=== PATIENT | male | born 1935 | race Caucasian/White ===

== ENCOUNTER 2018-06-13 07:33 | Inpatient (IN) ==
--- NOTE | 2018-06-13 08:06 | Emergency Department Note ---
Disposition Clinical Impression: Pancreatitis Qualifiers: Chronicity: acute Pancreatitis type: unspecified pancreatitis type Acute pancreatitis complication: no infection or necrosis Qualified Code(s): K85.90 - Acute pancreatitis without necrosis or infection, unspecified COPD (chronic obstructive pulmonary disease) Qualifiers: COPD type: emphysema Emphysema type: unspecified Qualified Code(s): J43.9 - Emphysema, unspecified Disposition: Admitted As Inpatient Condition: Good General Adult HPI - General Chief complaint: ED Abdominal Pain Stated complaint: abd pain Time Seen by Provider: 06/13/18 07:36 Source: patient Limitations: no limitations Nursing Notes Reviewed: Yes Vital Signs Reviewed: Yes - History of Present Illness HPI Narrative: Patient is an 82-year-old male with history of emphysema, hyperlipidemia who presents the emergency department with complaints of epigastric pain which started last night. Patient was recently admitted and discharged from [facility] for pancreatitis with unknown source on 06/07/18. He states he is not a drinker, has had his gallbladder out previously, and does not have elevated triglycerides. The abdominal pain is sharp and radiates from his epigastric area to left side of his abdomen into his back. He also admits nausea but has not vomited. He has good oral intake at home. Otherwise notes slight shortness of breath and dyspnea on exertion. He denies any fever, cough, vomiting, diarrhea, dysuria, hematuria, peripheral edema. Pain Scale: 9 - Related Data Home Medications Medication Instructions Recorded Confirmed Calcium Carbonate [Calcium] 1,000 mg PO DAILY 06/13/18 06/13/18 Gabapentin [Neurontin] 300 mg PO TID 06/13/18 06/13/18 Levothyroxine Sodium 150 mg PO DAILY 06/13/18 06/13/18 [place]-3S/Dha/Epa/Fish Oil [Fish 3 cap PO DAILY 06/13/18 06/13/18 Oil [place]-3 Softgel] Simvastatin [Zocor] 20 mg PO DAILY 06/13/18 06/13/18 Allergies Allergy/AdvReac Type Severity Reaction Status Date / Time No Known Allergies Allergy Verified 06/13/18 07:36 Review of Systems: As Per HPI Constitutional: Denies: fever, chills, weakness, weight change Cardiovascular: Reports: chest pain, dyspnea on exertion. Denies: palpitations, orthopnea, edema Respiratory: Reports: dyspnea. Denies: cough, wheezes, hemoptysis Gastrointestinal: Reports: abdominal pain, nausea. Denies: vomiting, diarrhea, constipation Genitourinary: Denies: dysuria, hematuria Integumentary: Denies: rash Neurological: Denies: headache, weakness, numbness, paresthesias Past Medical History - Past Medical History Attestation: Yes The following information was validated with the patient. Source: patient Medical history: Reports: cancer, COPD, other Psychiatric history: Reports: no psych history - Social History Smoking Status: Former smoker Smokeless Tobacco Status: No Alcohol use: Reports: none Drug use: Reports: none Physical Exam - General Limitations: no limitations General appearance: alert, other (appears in pain) - Head Head exam: atraumatic, normocephalic - Chest Chest inspection: Present: normal inspection, tenderness (midline pain at xyphoid process) - Respiratory Respiratory exam: Present: normal lung sounds bilaterally. Absent: respiratory distress, wheezes, stridor, accessory muscle use - Cardiovascular Cardiovascular exam: Present: regular rate, normal rhythm, normal heart sounds - Abdominal Exam Abdominal exam: Present: soft, tenderness, guarding, normal bowel sounds, incision (multiple, small consistent with laparascopy cholecystectomy). Absent: rebound - Extremities Exam Extremities exam: Present: normal inspection. Absent: pedal edema - Back Exam Back exam: Present: normal inspection. Absent: CVA tenderness (R), CVA tenderness (L) - Neurological Exam Neurological exam: Present: alert, oriented X3 - Psychiatric Psychiatric exam: Present: normal affect, normal mood - Skin Skin exam: Present: warm, dry, intact Course Vital Signs Temperature 98 F 06/13/18 07:37 Pulse Rate 83 06/13/18 07:37 Respiratory Rate 20 06/13/18 07:37 Blood Pressure 179/82 06/13/18 07:37 O2 Sat by Pulse Oximetry 94 06/13/18 07:37 Temperature 98 F 06/13/18 07:37 Pulse Rate 79 06/13/18 07:54 Respiratory Rate 16 06/13/18 16:04 Blood Pressure 156/77 06/13/18 15:02 O2 Sat by Pulse Oximetry 95 06/13/18 16:04 Oxygen Delivery Oxygen Delivery Nasal Cannula Medical Decision Making - MDM Narrative Medical decision making narrative: 82-year-old male recently admitted for pancreatitis. Did not undergo MRCP at that time. Patient has no history of alcoholism, hypertriglyceridemia, and has previously had his gallbladder out. His exam is consistent with pancreatitis. CBC reveals leukocytosis, CMP unremarkable. Lipase elevated at 866. CT abdomen reveals findings consistent with acute pancreatitis without abscess formation. While in the emergency department the patient was noted to be hypoxic, intermittently down to the low 80s with improvement after supplemental oxygen given. Given his recent hospitalization and new onset SOB, obtained d-dimer to evaluate for DVT. This was elevated at 1809 and given his recent IV contrast load for CT abdomen will obtained VQ scan to evaluate for pulmonary embolism. This revealed low probability for pulmonary embolism. Patient to be admitted for further treatment and evaluation of his pancreatitis. Accepted by Dr. Ramirez. Patient agrees with and understands course of treatment plan including plan for admission. All questions answered. - Medical Records Medical records reviewed: Yes I reviewed the patient's medical records. - Lab Data Lab results reviewed: Yes I reviewed the patient's lab results. Result diagrams: 06/13/18 07:56 06/13/18 07:56 Lab Results 06/13/18 06/13/18 06/13/18 Range/Units 07:56 07:56 08:25 WBC 13.1 H (4.3-11.1) K/mcL RBC 5.10 (4.19-5.50) M/mcL Hgb 14.6 (12.9-16.9) g/dL Hct 44.6 (37.5-50.1) % MCV 87.5 (83.0-100.0) fL MCH 28.6 (28.0-33.3) pg MCHC 32.7 (31.6-35.5) g/dL RDW 11.9 (11.5-14.5) % Plt Count 247 (140-400) K/mcL MPV 8.6 L (9.4-12.4) fL Immature Gran % 0.5 (0-4) % Seg Neutrophils % 81.2 % Lymphocytes % 5.0 % Monocytes % 10.1 % Eosinophils % 2.9 % Basophils % 0.3 % Neutrophils # 10.6 H (1.6-8.9) K/mcL Lymphocytes # 0.7 (0.6-4.6) K/mcL Monocytes # 1.3 (0.0-1.3) K/mcL Eosinophils # 0.4 (0.0-0.6) K/mcL Basophils # 0.0 (0.0-0.2) K/mcL D-Dimer (0-500) ng/mLFEU Sodium 136 (136-145) mEq/L Potassium 4.1 (3.5-5.1) mEq/L Chloride 99 (98-107) mEq/L Carbon Dioxide 28 (23-29) mEq/L BUN 13 (8-23) mg/dL Creatinine 0.88 (0.70-1.30) mg/dL Est GFR ( Amer) > 60 (> 60) Est GFR (Non-Af Amer) > 60 (> 60) BUN/Creatinine Ratio 15 (6-26) Glucose 125 H (70-105) mg/dL Calculated Osmolality 284 (280-300) Calcium 9.5 (8.6-10.3) mg/dL Total Bilirubin 1.1 H (0.3-1.0) mg/dL AST 22 (13-39) Units/L ALT 27 (7-52) Units/L Alkaline Phosphatase 75 (34-104) Units/L Troponin I < 0.03 (< 0.04) ng/mL B-Natriuretic Peptide (Less than 100) pg/mL Serum Total Protein 7.2 (6.4-8.9) g/dL Albumin 4.0 (3.5-5.7) g/dL Globulin 3.2 (2.4-3.5) g/dL Albumin/Globulin Ratio 1.3 (1.1-2.2) Triglycerides (< 150) mg/dL Cholesterol (< 200) mg/dL LDL Cholesterol, Calc (0-99) mg/dL VLDL Cholesterol, Calc (< 31) mg/dL HDL Cholesterol (40-59) mg/dL Cholesterol/HDL Ratio (0-4.9) Amylase (29-103) Units/L Lipase 866 H (11-82) Units/L Urine Opiates Screen Negative (Rmdapy=594) ng/mL Ur Barbiturates Screen Negative (Idspyq=462) ng/mL Ur Phencyclidine Scrn Negative (Cutoff=25) ng/mL Ur Amphetamines Screen Negative (Pemquz=3433) ng/mL U Benzodiazepines Scrn Negative (Vokxqz=909) ng/mL Urine Cocaine Screen Negative (Cutoff= 300) ng/mL U Marijuana (THC) Screen Negative (Cutoff = 50) ng/mL Ur Drug Screen Interp See Below Ethyl Alcohol (Less than 10) mg/dL 06/13/18 06/13/18 06/13/18 Range/Units 11:12 11:12 11:12 WBC (4.3-11.1) K/mcL RBC (4.19-5.50) M/mcL Hgb (12.9-16.9) g/dL Hct (37.5-50.1) % MCV (83.0-100.0) fL MCH (28.0-33.3) pg MCHC (31.6-35.5) g/dL RDW (11.5-14.5) % Plt Count (140-400) K/mcL MPV (9.4-12.4) fL Immature Gran % (0-4) % Seg Neutrophils % % Lymphocytes % % Monocytes % % Eosinophils % % Basophils % % Neutrophils # (1.6-8.9) K/mcL Lymphocytes # (0.6-4.6) K/mcL Monocytes # (0.0-1.3) K/mcL Eosinophils # (0.0-0.6) K/mcL Basophils # (0.0-0.2) K/mcL D-Dimer 1809 H (0-500) ng/mLFEU Sodium (136-145) mEq/L Potassium (3.5-5.1) mEq/L Chloride (98-107) mEq/L Carbon Dioxide (23-29) mEq/L BUN (8-23) mg/dL Creatinine (0.70-1.30) mg/dL Est GFR ( Amer) (> 60) Est GFR (Non-Af Amer) (> 60) BUN/Creatinine Ratio (6-26) Glucose (70-105) mg/dL Calculated Osmolality (280-300) Calcium (8.6-10.3) mg/dL Total Bilirubin (0.3-1.0) mg/dL AST (13-39) Units/L ALT (7-52) Units/L Alkaline Phosphatase (34-104) Units/L Troponin I (< 0.04) ng/mL B-Natriuretic Peptide 47 (Less than 100) pg/mL Serum Total Protein (6.4-8.9) g/dL Albumin (3.5-5.7) g/dL Globulin (2.4-3.5) g/dL Albumin/Globulin Ratio (1.1-2.2) Triglycerides 66 (< 150) mg/dL Cholesterol 108 (< 200) mg/dL LDL Cholesterol, Calc 44 (0-99) mg/dL VLDL Cholesterol, Calc 13 (< 31) mg/dL HDL Cholesterol 51 (40-59) mg/dL Cholesterol/HDL Ratio 2.1 (0-4.9) Amylase 265 H (29-103) Units/L Lipase (11-82) Units/L Urine Opiates Screen (Kfnlor=453) ng/mL Ur Barbiturates Screen (Oscxii=508) ng/mL Ur Phencyclidine Scrn (Cutoff=25) ng/mL Ur Amphetamines Screen (Txbbqg=3200) ng/mL U Benzodiazepines Scrn (Ywhkvm=803) ng/mL Urine Cocaine Screen (Cutoff= 300) ng/mL U Marijuana (THC) Screen (Cutoff = 50) ng/mL Ur Drug Screen Interp Ethyl Alcohol < 10 (Less than 10) mg/dL - Radiology Data Radiology results reviewed: Yes I reviewed the patient's radiology results. Abdomen/Pelvis CT 06/13/18 08:09 IMPRESSION: 1. Findings are suggestive of acute pancreatitis. Clinical correlation recommended. 2. Diverticulosis without evidence of acute diverticulitis. 3. Bilateral renal cysts appearing similar since previous examination. D/ / Samy Stiles / Samy Stiles Interpreting Provider: Samy Stiles Chest X-Ray 06/13/18 08:14 IMPRESSION: Question of COPD. No acute cardiopulmonary disease. D/ / Jeremie Gómez MD / Jeremie Gómez MD Interpreting Provider: Jeremie Gómez MD Pulmonary Perfusion Imaging 06/13/18 11:38 IMPRESSION: Low probability for pulmonary embolus. D/ / Patti Rooney Cha, MD / Patti Rooney Cha, MD Interpreting Provider: Patti Rooney Cha, MD - EKG Data EKG #1 EKG attestation: Yes I reviewed and interpreted this EKG. EKG results narrative: Normal sinus rhythm rate of 79. ME 126, QRS 153, QT 403, QTC 462. Normal axis. Evidence of right bundle branch block in V2 V3 which is new when compared to 04/20/2005.
[2018-06-13] MEDS ORDERED: *HR* Morphine Immed Rel 30 MG TABLET PO ONE (08:07)
[2018-06-13] MEDS ORDERED: 0.9 % Sodium Chloride 1,000 ML IVC ONE (08:07)
[2018-06-13] MEDS ORDERED: Isovue-370 500 ML INFUS..BTL IV ONE (08:09)
[2018-06-13] MEDS ORDERED: Ondansetron 4 MG/2 ML VIAL IM ONE (08:13)
[2018-06-13 08:18] LABS: Basophils % 0.3 %; Eosinophils # 0.4 K/mcL (0.0-0.6); Eosinophils % 2.9 %; Hematocrit 44.6 % (37.5-50.1); Hemoglobin 14.6 g/dL (12.9-16.9); Immature Granulocytes % 0.5 % (0-4); Lymphocytes # 0.7 K/mcL (0.6-4.6); Mean Corpuscular HGB Conc 32.7 g/dL (31.6-35.5); Mean Corpuscular Hemoglobin 28.6 pg (28.0-33.3); Mean Corpuscular Volume 87.5 fL (83.0-100.0); Mean Platelet Volume 8.6 fL (9.4-12.4); Monocytes # 1.3 K/mcL (0.0-1.3); Monocytes % 10.1 %; Neutrophils # 10.6 K/mcL (1.6-8.9); Platelet Count 247 K/mcL (140-400); Red Cell Distribution Width 11.9 % (11.5-14.5); Segmented Neutrophils % 81.2 %
[2018-06-13 08:40] LABS: Troponin I < 0.03 ng/mL (< 0.04)
[2018-06-13 09:03] LABS: Alanine Aminotransferase 27 Units/L (7-52); Albumin/Globulin Ratio 1.3 (1.1-2.2); Alkaline Phosphatase 75 Units/L (34-104); Aspartate Amino Transferase 22 Units/L (13-39); BUN/Creatinine Ratio 15 (6-26); Bilirubin,Total 1.1 mg/dL (0.3-1.0); Blood Urea Nitrogen 13 mg/dL (8-23); Calcium 9.5 mg/dL (8.6-10.3); Carbon Dioxide 28 mEq/L (23-29); Chloride 99 mEq/L (98-107); Globulin 3.2 g/dL (2.4-3.5); Glucose 125 mg/dL (70-105); Lipase 866 Units/L (11-82); Osmolality,Calculated 284 (280-300); Potassium 4.1 mEq/L (3.5-5.1); Sodium 136 mEq/L (136-145); Total Protein 7.2 g/dL (6.4-8.9); eGFR For Non-African Americans > 60 (> 60)
[2018-06-13] MEDS ORDERED: *HR* FentaNYL (PF) 100 MCG/2 ML VIAL IVP ONE (10:16)
--- NOTE | 2018-06-13 10:25 | Emergency Department Note ---
Disposition Clinical Impression: Pancreatitis Qualifiers: Chronicity: acute Pancreatitis type: unspecified pancreatitis type Acute pancreatitis complication: no infection or necrosis Qualified Code(s): K85.90 - Acute pancreatitis without necrosis or infection, unspecified COPD (chronic obstructive pulmonary disease) Qualifiers: COPD type: emphysema Emphysema type: unspecified Qualified Code(s): J43.9 - Emphysema, unspecified Disposition: Admitted As Inpatient Condition: Good General Adult HPI - General Chief complaint: ED Abdominal Pain Stated complaint: abd pain Time Seen by Provider: 06/13/18 07:36 Source: patient Limitations: no limitations - History of Present Illness Pain Scale: 9 - Related Data Home Medications Medication Instructions Recorded Confirmed Calcium Carbonate [Calcium] 1,000 mg PO DAILY 06/13/18 06/13/18 Gabapentin [Neurontin] 300 mg PO TID 06/13/18 06/13/18 Levothyroxine Sodium 150 mg PO DAILY 06/13/18 06/13/18 [place]-3S/Dha/Epa/Fish Oil [Fish 3 cap PO DAILY 06/13/18 06/13/18 Oil [place]-3 Softgel] Simvastatin [Zocor] 20 mg PO DAILY 06/13/18 06/13/18 Allergies Allergy/AdvReac Type Severity Reaction Status Date / Time No Known Allergies Allergy Verified 06/13/18 07:36 Constitutional: Denies: fever, chills, weakness, weight change Cardiovascular: Reports: chest pain, dyspnea on exertion. Denies: palpitations, orthopnea, edema Respiratory: Reports: dyspnea. Denies: cough, wheezes, hemoptysis Gastrointestinal: Reports: abdominal pain, nausea. Denies: vomiting, diarrhea, constipation Genitourinary: Denies: dysuria, hematuria Integumentary: Denies: rash Neurological: Denies: headache, weakness, numbness, paresthesias Past Medical History - Past Medical History Medical history: Reports: cancer, COPD, other Psychiatric history: Reports: no psych history - Social History Smoking Status: Former smoker Smokeless Tobacco Status: No Alcohol use: Reports: none Drug use: Reports: none Physical Exam - General Limitations: no limitations General appearance: alert, other (appears in pain) Course Vital Signs Temperature 98 F 06/13/18 07:37 Pulse Rate 83 06/13/18 07:37 Respiratory Rate 20 06/13/18 07:37 Blood Pressure 179/82 06/13/18 07:37 O2 Sat by Pulse Oximetry 94 06/13/18 07:37 Temperature 98 F 06/13/18 07:37 Pulse Rate 79 06/13/18 07:54 Respiratory Rate 16 06/13/18 16:04 Blood Pressure 156/77 06/13/18 15:02 O2 Sat by Pulse Oximetry 95 06/13/18 16:04 Oxygen Delivery Oxygen Delivery Nasal Cannula Medical Decision Making - Lab Data Result diagrams: 06/13/18 07:56 06/13/18 07:56 Lab Results 06/13/18 06/13/18 06/13/18 Range/Units 07:56 07:56 08:25 WBC 13.1 H (4.3-11.1) K/mcL RBC 5.10 (4.19-5.50) M/mcL Hgb 14.6 (12.9-16.9) g/dL Hct 44.6 (37.5-50.1) % MCV 87.5 (83.0-100.0) fL MCH 28.6 (28.0-33.3) pg MCHC 32.7 (31.6-35.5) g/dL RDW 11.9 (11.5-14.5) % Plt Count 247 (140-400) K/mcL MPV 8.6 L (9.4-12.4) fL Immature Gran % 0.5 (0-4) % Seg Neutrophils % 81.2 % Lymphocytes % 5.0 % Monocytes % 10.1 % Eosinophils % 2.9 % Basophils % 0.3 % Neutrophils # 10.6 H (1.6-8.9) K/mcL Lymphocytes # 0.7 (0.6-4.6) K/mcL Monocytes # 1.3 (0.0-1.3) K/mcL Eosinophils # 0.4 (0.0-0.6) K/mcL Basophils # 0.0 (0.0-0.2) K/mcL D-Dimer (0-500) ng/mLFEU Sodium 136 (136-145) mEq/L Potassium 4.1 (3.5-5.1) mEq/L Chloride 99 (98-107) mEq/L Carbon Dioxide 28 (23-29) mEq/L BUN 13 (8-23) mg/dL Creatinine 0.88 (0.70-1.30) mg/dL Est GFR ( Amer) > 60 (> 60) Est GFR (Non-Af Amer) > 60 (> 60) BUN/Creatinine Ratio 15 (6-26) Glucose 125 H (70-105) mg/dL Calculated Osmolality 284 (280-300) Calcium 9.5 (8.6-10.3) mg/dL Total Bilirubin 1.1 H (0.3-1.0) mg/dL AST 22 (13-39) Units/L ALT 27 (7-52) Units/L Alkaline Phosphatase 75 (34-104) Units/L Troponin I < 0.03 (< 0.04) ng/mL B-Natriuretic Peptide (Less than 100) pg/mL Serum Total Protein 7.2 (6.4-8.9) g/dL Albumin 4.0 (3.5-5.7) g/dL Globulin 3.2 (2.4-3.5) g/dL Albumin/Globulin Ratio 1.3 (1.1-2.2) Triglycerides (< 150) mg/dL Cholesterol (< 200) mg/dL LDL Cholesterol, Calc (0-99) mg/dL VLDL Cholesterol, Calc (< 31) mg/dL HDL Cholesterol (40-59) mg/dL Cholesterol/HDL Ratio (0-4.9) Amylase (29-103) Units/L Lipase 866 H (11-82) Units/L Urine Opiates Screen Negative (Jsnfsr=332) ng/mL Ur Barbiturates Screen Negative (Rjcwkn=749) ng/mL Ur Phencyclidine Scrn Negative (Cutoff=25) ng/mL Ur Amphetamines Screen Negative (Swjzwq=7694) ng/mL U Benzodiazepines Scrn Negative (Rmxcql=849) ng/mL Urine Cocaine Screen Negative (Cutoff= 300) ng/mL U Marijuana (THC) Screen Negative (Cutoff = 50) ng/mL Ur Drug Screen Interp See Below Ethyl Alcohol (Less than 10) mg/dL 06/13/18 06/13/18 06/13/18 Range/Units 11:12 11:12 11:12 WBC (4.3-11.1) K/mcL RBC (4.19-5.50) M/mcL Hgb (12.9-16.9) g/dL Hct (37.5-50.1) % MCV (83.0-100.0) fL MCH (28.0-33.3) pg MCHC (31.6-35.5) g/dL RDW (11.5-14.5) % Plt Count (140-400) K/mcL MPV (9.4-12.4) fL Immature Gran % (0-4) % Seg Neutrophils % % Lymphocytes % % Monocytes % % Eosinophils % % Basophils % % Neutrophils # (1.6-8.9) K/mcL Lymphocytes # (0.6-4.6) K/mcL Monocytes # (0.0-1.3) K/mcL Eosinophils # (0.0-0.6) K/mcL Basophils # (0.0-0.2) K/mcL D-Dimer 1809 H (0-500) ng/mLFEU Sodium (136-145) mEq/L Potassium (3.5-5.1) mEq/L Chloride (98-107) mEq/L Carbon Dioxide (23-29) mEq/L BUN (8-23) mg/dL Creatinine (0.70-1.30) mg/dL Est GFR ( Amer) (> 60) Est GFR (Non-Af Amer) (> 60) BUN/Creatinine Ratio (6-26) Glucose (70-105) mg/dL Calculated Osmolality (280-300) Calcium (8.6-10.3) mg/dL Total Bilirubin (0.3-1.0) mg/dL AST (13-39) Units/L ALT (7-52) Units/L Alkaline Phosphatase (34-104) Units/L Troponin I (< 0.04) ng/mL B-Natriuretic Peptide 47 (Less than 100) pg/mL Serum Total Protein (6.4-8.9) g/dL Albumin (3.5-5.7) g/dL Globulin (2.4-3.5) g/dL Albumin/Globulin Ratio (1.1-2.2) Triglycerides 66 (< 150) mg/dL Cholesterol 108 (< 200) mg/dL LDL Cholesterol, Calc 44 (0-99) mg/dL VLDL Cholesterol, Calc 13 (< 31) mg/dL HDL Cholesterol 51 (40-59) mg/dL Cholesterol/HDL Ratio 2.1 (0-4.9) Amylase 265 H (29-103) Units/L Lipase (11-82) Units/L Urine Opiates Screen (Ridpvw=912) ng/mL Ur Barbiturates Screen (Amjlwh=243) ng/mL Ur Phencyclidine Scrn (Cutoff=25) ng/mL Ur Amphetamines Screen (Dnoqji=3966) ng/mL U Benzodiazepines Scrn (Eigahz=732) ng/mL Urine Cocaine Screen (Cutoff= 300) ng/mL U Marijuana (THC) Screen (Cutoff = 50) ng/mL Ur Drug Screen Interp Ethyl Alcohol < 10 (Less than 10) mg/dL Attestation Statement - Attestation Attestation: I examined this patient and my medical decision-making was reviewed with the Resident Physician. I agree with the documented findings, disposition and treatment plan as described except to the extent set forth below. Patient presents to the ED with a chief complaint of epigastric abdominal pain. Patient had a recent admission at [facility] for pancreatitis. No history of the same. Denies alcohol. He is a prior cholecystectomy. She was feeling better but got worse today. On exam he is epigastric tenderness. Plan. CT shows pancreatitis. Lipase elevated. Patient nothing by mouth and will admit. He is also noted to be hypoxic. We will add d-dimer. D-dimer elevated. Awaiting VQ scan. Patient is admitted.
--- NOTE | 2018-06-13 10:39 | Internal Med History&Physical ---
Date of Encounter: 06/13/18 Time of Encounter: 10:30 Internal Medicine - H&P: HPI Chief complaint: Abdominal pain Admitted From: Home Plans for Post Hospital Care: Home History of present illness: Mr. Diego is a 82 year old male with history of COPD and cholecystectomy presented to the emergency department with abdominal pain. As per patient his abdominal pain started the day before admission and has progressively worsened. Pain is located in the epigastric area and radiates to the back, sharp in nature and 8 out of 10 in severity. Abdominal pain is unassociated with nausea or vomiting or diarrhea. has No relations to oral intake. He has had similar pain in the past and was admitted to [facility] on 06/07 with similar symptoms and was diagnosed with acute pancreatitis. Unfortunately the cause of p ancreatitis was unknown at [facility]. At [facility] it was recommended for him to have an MRCP however he declines due to claustrophobia. He denies alcohol use, no recent medication changes nor has he had similar symptoms in the past. He denies drug use. He denies fever, chills, chest pain, palpitations, hematemesis, leg swelling, calf tenderness, heat or cold intolerance. He does complain of shortness of breath that started post discharge from [facility] disassociated with wheezing and aggravated by ambulation and alleviated by rest. He was diagnosed with emphysema due to prior history of smoking and has been prescribed inhalers however he is noncompliant to his inhalers. He is not on home oxygen nor has he ever been intubated for respiratory failure. He reports that his vaccinations are up-to-date, no recent travel, no prolonged immobilization. While in the ED CT abdomen and pelvis was consistent with acute pancreatitis, lipase was elevated in the 800s, No intrahepatic or extrahepatic bile duct dilatation. was seen along with other findings as below. he was endorsed for admission for further management of acute pancreatitis. Past Med Surg Social Fam HX - Past Medical History Medical history: cancer, COPD, other Additional medical history: pancreatitis. colon cancer Psychiatric history: no psych history - Past Surgical History Additional surgical history: cataract w/lens - Social History Smoking Status: Former smoker Smokeless Tobacco Status: No Alcohol use: none Drug use: none Internal Medicine - H&P: Meds Calcium Carbonate [Calcium] 1,000 mg PO DAILY 06/13/18 [History] Gabapentin [Neurontin] 300 mg PO TID 06/13/18 [History] Levothyroxine Sodium 150 mg PO DAILY 06/13/18 [History] [place]-3S/Dha/Epa/Fish Oil [Fish Oil [place]-3 Softgel] 3 cap PO DAILY 06/13/18 [History] Simvastatin [Zocor] 20 mg PO DAILY 06/13/18 [History] Allergy/AdvReac Type Severity Reaction Status Date / Time No Known Allergies Allergy Verified 06/13/18 07:36 All Systems PM: review of systems was performed and is negative for pertinent findings except as documented above in the HPI. - Constitutional Vitals: Temp Pulse Resp BP Pulse Ox 98 F 79 18 170/82 97 06/13/18 07:37 06/13/18 07:54 06/13/18 07:54 06/13/18 07:54 06/13/18 07:54 Exam: General: Patient is alert, oriented, no acute distress, obese, speaks in full sentences Head: atraumatic, normocephalic, Eye: normal appearance, PERRL, no scleral icterus, no conjunctival injection ENT: mucous membranes moist, normal external ear exam Neck: normal inspection, trachea midline, full ROM, no carotid bruits Chest: normal inspection, symmetric chest rise Respiratory: Good respiratory effort. Decreased Bilateral breath sounds secondary to body habitus, occasional wheezing in the posterior chest, no crackles or rails Cardiovascular: Distant heart sounds secondary to body habitus, Regular rate and rhythm. s1 and s2 No clicks, rubs, gallops, or murmors. Abdomen: Bowel sounds present normoactive x-4 quadrants. Abdomen is soft, nondistended. no Epigastric tenderness. No guarding or rebound. No organomegaly noted, obese, no flank discoloration musculoskeletal: Spontaneously moving all extremities. no edema, no calf tenderness Skin: warm, dry, intact. Neuro: Alert and oriented x4. Sensation light touch intact. Cranial nerves 2- 12 is intact. Not aphasic, rapid hand movements intact, zjtice-ad-bnuf intact, no focal deficit Psych: Patient's affect is normal Internal Med - H&P Results - Labs CBC & Chem 7: 06/13/18 07:56 06/13/18 07:56 Labs: Short CBC 06/13/18 Range/Units 07:56 WBC 13.1 H (4.3-11.1) K/mcL Hgb 14.6 (12.9-16.9) g/dL Hct 44.6 (37.5-50.1) % Plt Count 247 (140-400) K/mcL Neutrophils # 10.6 H (1.6-8.9) K/mcL BMP 06/13/18 07:56 Sodium 136 Potassium 4.1 Chloride 99 Carbon Dioxide 28 BUN 13 Creatinine 0.88 Glucose 125 H Calcium 9.5 Cardiac Enzymes 06/13/18 Range/Units 07:56 Troponin I < 0.03 (< 0.04) ng/mL Liver Function 06/13/18 Range/Units 07:56 Total Bilirubin 1.1 H (0.3-1.0) mg/dL AST 22 (13-39) Units/L ALT 27 (7-52) Units/L Alkaline Phosphatase 75 (34-104) Units/L Albumin 4.0 (3.5-5.7) g/dL - EKG Data -: EKG Interpreted by Myself (NSR, RBBB, QT 462) - EKG Data Prior EKG available for review: yes When compared to previous EKG: there are significant changes (new RBBB) - Impressions ITS Impressions Abdomen/Pelvis CT 06/13/18 08:09 IMPRESSION: 1. Findings are suggestive of acute pancreatitis. Clinical correlation recommended. 2. Diverticulosis without evidence of acute diverticulitis. 3. Bilateral renal cysts appearing similar since previous examination. D/ / Samy Stiles / Samy Stiles Interpreting Provider: Samy Stiles Chest X-Ray 06/13/18 08:14 IMPRESSION: Question of COPD. No acute cardiopulmonary disease. D/ / Jeremie Gómez MD / Jeremie Gómez MD Interpreting Provider: Jeremie Gómez MD - Assessment and plan (1) Acute pancreatitis Current Visit: Yes Status: Acute Assessment and plan: Lipase 836 on admission was recently admitted to [facility] with similar symptoms was recommended to have MRCP - he declined denies alcohol use, previous TG WNL, ?medication induced vs autoimmune vs sphinchter of oddi spasm/malfunction IgG4, lipid panel, alcohol level GI consult Continue NS at 100 mL per hourwatch for overload PPI 40 mg IV every day Zofran 4 mg every 8 hours when necessary for nausea and vomitingwatch QT Pain control with morphine Q6H PRN bowel regimen Serial abdominal exams A.m. labs along with A1c U tox clear liquid for now - Nothing by mouth at midnight Continue home medications if not contraindicated CT A/P 06/13 IMPRESSION: 1. Findings are suggestive of acute pancreatitis. Clinical correlation recommended. 2. Diverticulosis without evidence of acute diverticulitis. 3. Bilateral renal cysts appearing similar since previous examination. Qualifiers: Acute pancreatitis complication: unspecified Qualified Code(s): K85.90 - Acute pancreatitis without necrosis or infection, unspecified (2) COPD exacerbation Current Visit: Yes Status: Acute Assessment and plan: Has history of emphysema not compliant to inhalers will start him on DUO-NEB Q6H PRN oxygen via nasal cannula to keep saturation >92% levaquin IV Solu-Medrol 40 mg daily urine antigens Reports that he received influenza and pneumonia vaccinations this year CXR IMPRESSION: Question of COPD. No acute cardiopulmonary disease. (3) Acute and chronic respiratory failure with hypoxia Current Visit: Yes Status: Acute Assessment and plan: Most likely secondary to COPD exacerbation doubt PE Wells criteria 0 ( was hospitalized for acute pancreatitis in late may however he reports he received prophylaxis) D-Dimer sent in the ED - 1809 BNP: wnl troponin: negative management as per above V/Q- low prob for PE (4) Hypothyroidism Current Visit: Yes Status: Acute Assessment and plan: continue synthroid Qualifiers: Hypothyroidism type: acquired Qualified Code(s): E03.9 - Hypothyroidism, unspecified (5) Obesity (BMI 30.0-34.9) Current Visit: Yes Status: Acute Assessment and plan: BMI 32.4 nutrition consult (6) DVT prophylaxis Current Visit: Yes Status: Acute Assessment and plan: heparin sc - Time Spent With Patient Total time spent is greater than 50% in coordination of care (as documented) at patient's floor/unit and/or counseling patient:
[2018-06-13 10:58] LABS: Amphetamine Screen,Urine Negative ng/mL (Cutoff=1000); Barbiturate Screen,Urine Negative ng/mL (Cutoff=200); Benzodiazepines Screen,Urine Negative ng/mL (Cutoff=200); Cannabinoid Screen,Urine Negative ng/mL (Cutoff = 50); Cocaine Screen,Urine Negative ng/mL (Cutoff= 300); Opiate Screen,Urine Negative ng/mL (Cutoff=300); Phencyclidine Screen,Urine Negative ng/mL (Cutoff=25)
[2018-06-13] MEDS ORDERED: MethylPREDNISolone 40 MG/ML VIAL IVP ONE (11:15)
[2018-06-13 11:41] LABS: Amylase 265 Units/L (29-103); Chol/HDL Ratio 2.1 (0-4.9); Cholesterol 108 mg/dL (< 200); Ethanol < 10 mg/dL (Less than 10); HDL Cholesterol 51 mg/dL (40-59); LDL Cholesterol,Calculated 44 mg/dL (0-99); Triglycerides 66 mg/dL (< 150)
[2018-06-13] MEDS: Levofloxacin 750 MG/150 ML 750 MG/150 ML BAG IVPB SCH (13:16)
[2018-06-13] MEDS: Pantoprazole 40 MG VIAL IVP SCH (13:17)
[2018-06-13] MEDS: amLODIPine 5 MG TABLET PO SCH (13:17)
[2018-06-13] MEDS ORDERED: Naloxone 0.4 MG/ML INJ IVP PRN ×2 (14:23→14:24)
[2018-06-13] MEDS: Ipratropium/Albuterol Neb 3 ML IH SCH ×4 (15:31→23:40)
[2018-06-13] MEDS: 0.9 % Sodium Chloride 1,000 ML IVC SCH (16:08)
[2018-06-13] MEDS: Gabapentin 300 MG CAPSULE PO SCH ×2 (16:09→20:11)
[2018-06-13] MEDS: MethylPREDNISolone 40 MG/ML VIAL IVP SCH (16:09)
[2018-06-13] MEDS: *HR* Heparin 5,000 UNIT/ML VIAL SQ SCH ×2 (16:09→20:11)
[2018-06-13] MEDS: *HR* Morphine 2 MG/ML SYRINGE IVP PRN (20:12)
[2018-06-14] MEDS: MethylPREDNISolone 40 MG/ML VIAL IVP SCH ×3 (00:06→14:24)
[2018-06-14] MEDS: 0.9 % Sodium Chloride 1,000 ML IVC SCH ×2 (02:13→03:20)
[2018-06-14] MEDS: Ipratropium/Albuterol Neb 3 ML IH SCH ×6 (04:13→23:49)
[2018-06-14] MEDS: *HR* Heparin 5,000 UNIT/ML VIAL SQ SCH ×3 (05:29→21:10)
[2018-06-14 05:56] LABS: Hematocrit 40.6 % (37.5-50.1); Immature Granulocytes % 0.8 % (0-4); Lymphocytes % 1.9 %; Mean Corpuscular Hemoglobin 28.1 pg (28.0-33.3); Mean Corpuscular Volume 87.7 fL (83.0-100.0); Mean Platelet Volume 8.6 fL (9.4-12.4); Monocytes % 3.8 %; Platelet Count 220 K/mcL (140-400); Red Blood Count 4.63 M/mcL (4.19-5.50); Red Cell Distribution Width 11.9 % (11.5-14.5); Segmented Neutrophils % 93.4 %
[2018-06-14 05:57] LABS: Basophils % 0.1 %; Lymphocytes # 0.3 K/mcL (0.6-4.6); Monocytes # 0.6 K/mcL (0.0-1.3); Neutrophils # 14.9 K/mcL (1.6-8.9)
[2018-06-14 06:11] LABS: Alanine Aminotransferase 21 Units/L (7-52); Albumin 3.3 g/dL (3.5-5.7); Albumin/Globulin Ratio 1.1 (1.1-2.2); Alkaline Phosphatase 65 Units/L (34-104); Aspartate Amino Transferase 16 Units/L (13-39); BUN/Creatinine Ratio 19 (6-26); Bilirubin,Total 0.6 mg/dL (0.3-1.0); Blood Urea Nitrogen 17 mg/dL (8-23); Calcium 8.9 mg/dL (8.6-10.3); Carbon Dioxide 27 mEq/L (23-29); Chloride 100 mEq/L (98-107); Glucose 196 mg/dL (70-105); Osmolality,Calculated 289 (280-300); Potassium 4.2 mEq/L (3.5-5.1); Sodium 136 mEq/L (136-145); Total Protein 6.3 g/dL (6.4-8.9); eGFR For Non-African Americans > 60 (> 60)
[2018-06-14 06:44] LABS: Estimated Average Glucose 103 mg/dl; Hemoglobin A1C 5.2 %
[2018-06-14] MEDS: Levofloxacin 750 MG/150 ML 750 MG/150 ML BAG IVPB SCH (08:31)
[2018-06-14] MEDS: Gabapentin 300 MG CAPSULE PO SCH ×3 (08:32→21:10)
[2018-06-14] MEDS: Pantoprazole 40 MG VIAL IVP SCH (08:32)
[2018-06-14] MEDS ORDERED: *HR* LORazepam 2 MG/ML VIAL IVP ONE (11:20)
--- NOTE | 2018-06-14 11:34 | Internal Med Progress Note ---
Hospitalist Progress Note - Encounter Date of Encounter: 06/14/18 Time of Encounter: 11:02 - Subjective Interval History: Patient seen and examined this morning. abdominal pain absent. Denies fever, chills, N/V/D. Had BM today. Denies chest pain, urinary complains. - Exam Vitals: Temp Pulse Resp BP Pulse Ox 97.5 F L 76 18 157/71 90 06/14/18 10:20 06/14/18 10:20 06/14/18 10:20 06/14/18 10:20 06/14/18 10:20 Exam: General: In no acute distress. Conversant. Obese. Respiratory exam: CTAB. no accessory muscle use, rales, rhonchi, wheezes Cardiovascular exam: RRR, +S1, +S2. no murmur, gallop, rubs. GI/Abdominal exam: Non-tender, Non-distended, normal bowel sounds, soft, no peritoneal signs. Extremities exam: full ROM, no pedal edema, warm, pulses palpable in b/l lower extremities. no calf tenderness Neurological exam: CN II-XII intact, AO X3, no focal deficits. no pronater drift, facial droop, speech deficit Skin exam: No skin rash, ulcer, purpura or ecchymosis. - Assessment and Plan (1) Acute pancreatitis Current Visit: Yes Status: Acute (2) DVT prophylaxis Current Visit: Yes Status: Acute (3) Acute and chronic respiratory failure with hypoxia Current Visit: Yes Status: Acute (4) COPD exacerbation Current Visit: Yes Status: Acute (5) Hypothyroidism Current Visit: Yes Status: Acute (6) Obesity (BMI 30.0-34.9) Current Visit: Yes Status: Acute - Summary of Assessment and Plan Summary of Assessment and Plan: Acute pancreatitis - Evidence on CT and elevated lipase - recently admitted to [facility] with similar symptoms was recommended to have MRCP - he declined due to claustrophobhia. Agrees to get it done with some sedation today. - no alcohol use, Had cholecystectomy, TG WNL - f/u IgG4 - GI consulted - Continue NS at 100 mL per hour - PPI 40 mg IV every day - prn morphine and zofran - U tox unremarkable - c/w npo until seen by GI. COPD exacerbation - h/o emphysema not on inhalers - c/w duonebs - c/w levaquin IV, Solu-Medrol 40 mg daily - urine strep and legionella negative - improved. Will do short course of antibiotics and steroids Acute and chronic respiratory failure with hypoxia - possibly from COPD exacerbation - V/Q- low prob for PE - BNP wnl, trop negative Hypothyroidism - c/w homesynthroid DVT prophylaxis - heparin sc - Time Spent with Patient Total time spent is greater than 50% in coordination of care (as documented) at patient's floor/unit and/or counseling patient: Internal Medicine: Result - Labs CBC & Chem 7: 06/14/18 05:36 06/14/18 05:36 Labs: Short CBC 06/14/18 Range/Units 05:36 WBC 15.9 H (4.3-11.1) K/mcL Hgb 13.0 D (12.9-16.9) g/dL Hct 40.6 (37.5-50.1) % Plt Count 220 (140-400) K/mcL Neutrophils # 14.9 H (1.6-8.9) K/mcL BMP 06/14/18 05:36 Sodium 136 Potassium 4.2 Chloride 100 Carbon Dioxide 27 BUN 17 Creatinine 0.88 Glucose 196 H Calcium 8.9 Liver Function 06/14/18 Range/Units 05:36 Total Bilirubin 0.6 (0.3-1.0) mg/dL AST 16 (13-39) Units/L ALT 21 (7-52) Units/L Alkaline Phosphatase 65 (34-104) Units/L Albumin 3.3 L (3.5-5.7) g/dL - ABG Interpretation ABG results: PT/INR, D-dimer D-Dimer 1809 ng/mLFEU (0-500) H 06/13/18 11:12 - Impressions Impressions Pulmonary Perfusion Imaging 06/13/18 11:38 IMPRESSION: Low probability for pulmonary embolus. D/ / Patti Rooney Cha, MD / Patti Rooney Cha, MD Interpreting Provider: Patti Rooney Cha, MD Consult Discharge Plan - Plan Referrals: Shadi Gracia, [Primary Care Provider] - (1) Acute pancreatitis Qualifiers: Acute pancreatitis complication: unspecified Qualified Code(s): K85.90 - Acute pancreatitis without necrosis or infection, unspecified (5) Hypothyroidism Qualifiers: Hypothyroidism type: acquired Qualified Code(s): E03.9 - Hypothyroidism, unspecified
[2018-06-14] MEDS: amLODIPine 5 MG TABLET PO SCH (12:17)
--- NOTE | 2018-06-14 14:52 | Electrocardiograph Report ---
[place] [id number] Test Date: 2018-06-13 Pat Name: Jonh Diego Department: [id number] Room: 3A34 Gender: M [employer] Person: : 1935 Requested By: Nohemy Mckeon Order Number: [id number] Reading MD: Anni Lizarraga Measurements Intervals [place] Rate: 79 P: 10 CT: 126 QRS: 43 QRSD: 153 T: 18 QT: 403 QTc: 462 Interpretive Statements Sinus rhythm Right bundle branch block Electronically Signed On 06-14-2018 14:50:39 EST by Anni Lizarraga
[2018-06-15] MEDS: MethylPREDNISolone 40 MG/ML VIAL IVP SCH ×3 (00:03→15:58)
[2018-06-15] MEDS: 0.9 % Sodium Chloride 1,000 ML IVC SCH ×3 (03:32→15:58)
[2018-06-15] MEDS: Ipratropium/Albuterol Neb 3 ML IH SCH ×6 (04:03→23:56)
[2018-06-15] MEDS: *HR* Heparin 5,000 UNIT/ML VIAL SQ SCH ×3 (05:51→20:57)
[2018-06-15 06:17] LABS: Basophils % 0.1 %; Hematocrit 37.4 % (37.5-50.1); Hemoglobin 12.7 g/dL (12.9-16.9); Immature Granulocytes % 1.6 % (0-4); Lymphocytes # 0.5 K/mcL (0.6-4.6); Lymphocytes % 2.3 %; Mean Corpuscular Hemoglobin 29.1 pg (28.0-33.3); Mean Corpuscular Volume 85.6 fL (83.0-100.0); Mean Platelet Volume 9.1 fL (9.4-12.4); Monocytes # 0.9 K/mcL (0.0-1.3); Monocytes % 4.4 %; Neutrophils # 18.3 K/mcL (1.6-8.9); Platelet Count 252 K/mcL (140-400); Red Blood Count 4.37 M/mcL (4.19-5.50); Segmented Neutrophils % 91.6 %
[2018-06-15 06:40] LABS: BUN/Creatinine Ratio 23 (6-26); Blood Urea Nitrogen 20 mg/dL (8-23); Calcium 9.3 mg/dL (8.6-10.3); Carbon Dioxide 26 mEq/L (23-29); Chloride 106 mEq/L (98-107); Glucose 146 mg/dL (70-105); Lipase 94 Units/L (11-82); Osmolality,Calculated 293 (280-300); Potassium 4.6 mEq/L (3.5-5.1); Sodium 139 mEq/L (136-145); eGFR For Non-African Americans > 60 (> 60)
[2018-06-15] MEDS: Pantoprazole 40 MG VIAL IVP SCH (09:16)
[2018-06-15] MEDS: Gabapentin 300 MG CAPSULE PO SCH ×3 (09:18→20:57)
[2018-06-15] MEDS: amLODIPine 5 MG TABLET PO SCH (09:18)
--- NOTE | 2018-06-15 09:36 | Gastroenterology Consult Note ---
Date of Encounter: 06/15/18 Time of Encounter: 09:29 - Assessment and plan (1) Acute pancreatitis Current Visit: Yes Status: Acute Assessment and plan: Patient initially presented [facility] with abdominal pain and was diagnosed with acute pancreatitis. He states his symptoms resolved and was discharged however he did not follow the instructions and pancreatitis recurred. Upon presentation CT showed evidence of acute pancreatitis with amylase and lipase. Patient asymptomatic at this time and asking for pizza and cheese burgers. Lipase is trended down from 866 to 94. MRCP obtained and shows changes consistent with acute pancreatitis but no choledocholithiasis or biliary ductal dilatation. Etiology of the patient's pancreatitis is unclear, most likely is a gallstone that has passed, but malignancy needs to be ruled out, will check CA 19-9. Can also consider testing for genetic mutations such as Cystic Fibrosis as an outpatient. No new medications other than apple cider vinegar which as far as I can tell is never been associated with acute pancreatitis. Triglycerides normal, no alcohol use. Continue Clear liquid diet for now Qualifiers: Pancreatitis type: idiopathic Acute pancreatitis complication: unspecified Qualified Code(s): K85.00 - Idiopathic acute pancreatitis without necrosis or infection - Time Spent With Patient Total time spent is greater than 50% in coordination of care (as documented) at patient's floor/unit and/or counseling patient: GI History of Present Illness - Data of Consult Patient: new to practice Consult date: 06/15/18 Requesting Physician: Kaila Zuleta MD - Consult Narrative Reason for consult: Pancreatitis History of present illness: Mr. Diego is a 82 year old male with history of hypothyroidism presents with abdominal pain. Patient states his abdominal pain started about a week ago. He describes it as sharp pain in the center of his abdomen. He states he has never had anything like this before. At that time he presented to [facility] emergency department where he was diagnosed with pancreatitis. He states he was there for 4 days and felt better. They did recommend that he undergo MRCP however he refused due to claustrophobia. He states that when he is felt better he was discharged home and was instructed to slowly advance his diet however he states he went back to eating his normal diet just high and fatty and salty foods. He states at that time his pain recurred and he presented to [facility]. Patient underwent CT that showed evidence of pancreatitis and a elevated amylase and lipase. Patient was treated with bowel rest and IV fluids and patient states that his symptoms have completely resolved. When I entered the room he was asking for pizza and big macs. He states he started a clear liquid diet this morning and tolerated that well without any recurrence of abdominal pain. He remains pain-free at this time. Patient underwent MRCP that was negative for any choledocholithiasis or intrahepatic ductal dilatation. Killian mcghee denies that he started any new medication although he does state that recently he has been taking apple cider vinegar pills for general health. He denies any personal or family history of pancreatitis. He states his gallbladder was removed about 6 years ago. He denies any alcohol use, trigl ycerides were normal. Colonoscopy: unknown EGD: unknown Past Med Surg Social Fam HX - Past Medical History Medical history: cancer, COPD, other Additional medical history: pancreatitis. colon cancer Psychiatric history: no psych history - Past Surgical History Additional surgical history: cataract w/lens - Social History Smoking Status: Former smoker Smokeless Tobacco Status: No Alcohol use: none Drug use: none - Additional Family History Additional family history: Denies family history of GI disorder/pancreatitis All systems PM: reviewed and no additional remarkable complaints except as stated - Constitutional Vitals: Temp Pulse Resp BP Pulse Ox 97.6 F 80 16 184/77 95 06/15/18 06:55 06/15/18 06:55 06/15/18 07:40 06/15/18 06:55 06/15/18 07:40 General appearance: Present: A&O X 3, pleasant, no acute distress, answers questions appropriately - Head Head exam: Present: atraumatic, normal inspection, normocephalic - Eye Eye exam: Present: EOMI, PERRL - ENT ENT exam: Present: mucous membranes moist - Respiratory Respiratory exam: Present: CTAB. Absent: rales, rhonchi, wheezes - Cardiovascular Cardiovascular exam: Present: RRR. Absent: gallop, rubs, systolic murmur - GI/Abdominal GI/Abdominal exam: Present: guarding (mild voluntary guarding), normal bowel sounds, soft. Absent: distended, firm, rigid, tenderness - Extremities Exam Extremities exam: Present: warm. Absent: pedal edema, tenderness Results - Labs CBC & Chem 7: 06/15/18 06:07 06/15/18 06:07 Labs: Last Result Calcium 9.3 mg/dL (8.6-10.3) 06/15/18 06:07 Troponin I < 0.03 ng/mL (< 0.04) 06/13/18 07:56 Triglycerides 66 mg/dL (< 150) 06/13/18 11:12 Urine Opiates Screen Negative ng/mL ([id number]) 06/13/18 08:25 Entire Visit Hgb 12.7 g/dL (12.9-16.9) L 06/15/18 06:07 Hct 37.4 % (37.5-50.1) L 06/15/18 06:07 Total Bilirubin 0.6 mg/dL (0.3-1.0) 06/14/18 05:36 AST 16 Units/L (13-39) 06/14/18 05:36 ALT 21 Units/L (7-52) 06/14/18 05:36 Amylase 265 Units/L (29-103) H 06/13/18 11:12 Lipase 94 Units/L (11-82) H 06/15/18 06:07 - ABG ABG results: PT/INR, D-dimer D-Dimer 1809 ng/mLFEU (0-500) H 06/13/18 11:12 - Impressions Impressions Abdomen MRI 06/14/18 11:19 IMPRESSION: Findings are again consistent with acute pancreatitis. No biliary ductal dilation or evidence of choledocholithiasis. D/ / Diaz Melgar MD / Diaz Melgar MD Interpreting Provider: Diaz Melgar MD Consult Discharge Plan - Plan Referrals: Shadi Gracia DO [Primary Care Provider] -
[2018-06-15] MEDS: Levofloxacin 750 MG/150 ML 750 MG/150 ML BAG IVPB SCH (09:39)
--- NOTE | 2018-06-15 10:10 | Internal Med Progress Note ---
Hospitalist Progress Note - Encounter Date of Encounter: 06/15/18 Time of Encounter: 17:36 - Exam Vitals: Temp Pulse Resp BP Pulse Ox 97.6 F 80 16 184/77 95 06/15/18 06:55 06/15/18 06:55 06/15/18 07:40 06/15/18 06:55 06/15/18 07:40 Exam: General: In no acute distress. Conversant. Obese. Respiratory exam: CTAB. no accessory muscle use, rales, rhonchi, wheezes Cardiovascular exam: RRR, +S1, +S2. no murmur, gallop, rubs. GI/Abdominal exam: Non-tender, Non-distended, normal bowel sounds, soft, no peritoneal signs. Extremities exam: full ROM, no pedal edema, warm, pulses palpable in b/l lower extremities. no calf tenderness Skin exam: No skin rash, ulcer, purpura or ecchymosis. - Assessment and Plan (1) Acute pancreatitis Current Visit: Yes Status: Acute Assessment and Plan: Lipase 836 on admission was recently admitted to [facility] with similar symptoms was recommended to have MRCP - he declined denies alcohol use, previous TG WNL, GI consult Continue NS at 100 mL per hourwatch for overload Zofran 4 mg every 8 hours when necessary for nausea and vomitingwatch QT CT A/P 06/13 IMPRESSION: 1. Findings are suggestive of acute pancreatitis. Clinical correlation recommended. 2. Diverticulosis without evidence of acute diverticulitis. 3. Bilateral renal cysts appearing similar since previous examination. Advance diet as tolerated, currently on clear liquid diet. - Time Spent with Patient Total time spent is greater than 50% in coordination of care (as documented) at patient's floor/unit and/or counseling patient: Internal Medicine: Result - Labs CBC & Chem 7: 06/15/18 06:07 06/15/18 06:07 Labs: Short CBC 06/15/18 Range/Units 06:07 WBC 20.0 H (4.3-11.1) K/mcL Hgb 12.7 L (12.9-16.9) g/dL Hct 37.4 L (37.5-50.1) % Plt Count 252 (140-400) K/mcL Neutrophils # 18.3 H (1.6-8.9) K/mcL BMP 06/15/18 06:07 Sodium 139 Potassium 4.6 Chloride 106 Carbon Dioxide 26 BUN 20 Creatinine 0.86 Glucose 146 H Calcium 9.3 - ABG Interpretation ABG results: PT/INR, D-dimer D-Dimer 1809 ng/mLFEU (0-500) H 06/13/18 11:12 - Impressions Impressions Abdomen MRI 06/14/18 11:19 IMPRESSION: Findings are again consistent with acute pancreatitis. No biliary ductal dilation or evidence of choledocholithiasis. D/ / Diaz Melgar MD / Diaz Melgar MD Interpreting Provider: Diaz Melgar MD Consult Discharge Plan - Plan Referrals: Shadi Gracia DO [Primary Care Provider] - (1) Acute pancreatitis Qualifiers: Pancreatitis type: idiopathic Acute pancreatitis complication: unspecified Qualified Code(s): K85.00 - Idiopathic acute pancreatitis without necrosis or infection
[2018-06-15] MEDS: *HR* Morphine 2 MG/ML SYRINGE IVP PRN (20:57)
[2018-06-16] MEDS ORDERED: Melatonin 3 MG TABLET PO PRN (00:24)
[2018-06-16] MEDS: MethylPREDNISolone 40 MG/ML VIAL IVP SCH ×2 (00:44→08:36)
[2018-06-16] MEDS: 0.9 % Sodium Chloride 1,000 ML IVC SCH (00:52)
[2018-06-16 03:50] LABS: Basophils % 0.1 %; Hematocrit 36.3 % (37.5-50.1); Immature Granulocytes % 2.1 % (0-4); Lymphocytes # 0.4 K/mcL (0.6-4.6); Lymphocytes % 2.3 %; Mean Corpuscular HGB Conc 33.1 g/dL (31.6-35.5); Mean Corpuscular Hemoglobin 28.7 pg (28.0-33.3); Mean Corpuscular Volume 86.8 fL (83.0-100.0); Monocytes # 0.5 K/mcL (0.0-1.3); Monocytes % 3.6 %; Platelet Count 274 K/mcL (140-400); Red Blood Count 4.18 M/mcL (4.19-5.50); Red Cell Distribution Width 12.1 % (11.5-14.5); Segmented Neutrophils % 91.9 %
[2018-06-16] MEDS: Ipratropium/Albuterol Neb 3 ML IH SCH ×2 (04:26→07:23)
[2018-06-16] MEDS: *HR* Heparin 5,000 UNIT/ML VIAL SQ SCH (05:17)
[2018-06-16] MEDS: Pantoprazole 40 MG VIAL IVP SCH (08:36)
[2018-06-16] MEDS: Gabapentin 300 MG CAPSULE PO SCH (08:36)
[2018-06-16] MEDS: Levofloxacin 750 MG/150 ML 750 MG/150 ML BAG IVPB SCH (08:36)
[2018-06-16] MEDS: amLODIPine 5 MG TABLET PO SCH (08:36)
[2018-06-16 09:56] LABS: Immunoglobulin G Subclass 1 289 mg/dL (240-1118); Immunoglobulin G Subclass 2 105 mg/dL (124-549); Immunoglobulin G Subclass 3 40 mg/dL (21-134); Immunoglobulin G Subclass 4 13 mg/dL (1-123)
[2018-06-16] MEDS ORDERED: Ipratropium/Albuterol Neb 3 ML IH PRN (10:20)
[2018-06-16 12:17] VITALS: BP 168/78
--- NOTE | 2018-06-16 12:21 | Discharge Summary ---
- NOTES TO OUTPATIENT PROVIDER Notes to Outpatient Provider: Follow-up low fat diet. Orders not resulted at time of discharge: Pending orders 06/17/18 04:00 Complete Blood Count [HEME] AM 0400 06/18/18 04:00 Complete Blood Count [HEME] AM 0400 06/19/18 04:00 Complete Blood Count [HEME] AM 0400 06/20/18 04:00 Complete Blood Count [HEME] AM 0400 06/21/18 04:00 Complete Blood Count [HEME] AM 0400 06/22/18 04:00 Complete Blood Count [HEME] AM 0400 06/23/18 04:00 Complete Blood Count [HEME] AM 0400 06/24/18 04:00 Complete Blood Count [HEME] AM 0400 06/25/18 04:00 Complete Blood Count [HEME] AM 0400 Date of Encounter: 06/16/18 Time of Encounter: 12:17 - Discharge Diagnosis (1) Acute pancreatitis Priority: Primary Status: Acute Assessment and Plan: Lipase 836 on admission was recently admitted to [facility] with similar symptoms was recommended to have MRCP - he declined denies alcohol use, previous TG WNL, GI consult Continue NS at 100 mL per hourwatch for overload Zofran 4 mg every 8 hours when necessary for nausea and vomitingwatch QT CT A/P 06/13 IMPRESSION: 1. Findings are suggestive of acute pancreatitis. Clinical correlation recommended. 2. Diverticulosis without evidence of acute diverticulitis. 3. Bilateral renal cysts appearing similar since previous examination. Was able to advance diet without issue. Qualifiers: Pancreatitis type: idiopathic Acute pancreatitis complication: unspecified Qualified Code(s): K85.00 - Idiopathic acute pancreatitis without necrosis or infection Hospital course: Mr. Diego is a 82 year old male with history of COPD and cholecystectomy presented to the emergency department with abdominal pain. As per patient his abdominal pain started the day before admission and has progressively worsened. Pain is located in the epigastric area and radiates to the back, sharp in nature and 8 out of 10 in severity. Abdominal pain is unassociated with nausea or vomiting or diarrhea. has No relations to oral intake. He has had similar pain in the past and was admitted to [facility] on 06/07 with similar symptoms and was diagnosed with acute pancreatitis. Unfortunately the cause of pancreatitis was unknown at [facility] [place]. At [facility] it was recommended for him to have an MRCP however he declines due to claustrophobia. He denies alcohol use, no recent medication changes nor has he had similar symptoms in the past. He denies drug use. He denies fever, chills, chest pain, palpitations, hematemesis, leg swelling, calf tenderness, heat or cold intolerance. He does complain of shortness of breath that started post discharge from [facility] disassociated with wheezing and aggravated by ambulation and alleviated by rest. He was diagnosed with emphysema due to prior history of smoking and has been prescribed inhalers however he is noncompliant to his inhalers. He is not on home oxygen nor has he ever been intubated for respiratory failure. He reports that his vaccinations are up-to-date, no recent travel, no prolonged immobilization. While in the ED CT abdomen and pelvis was consistent with acute pancreatitis, lipase was elevated in the 800s, No intrahepatic or extrahepatic bile duct dilatation. was seen along with other findings as below. he was endorsed for admission for further management of acute pancreatitis. He was admitted for further treatment and monitoring. He was NPO and was able to advance diet as tolerated. He had an MRCP that showed changes consistent with acute pancreatitis but no choledocholithiasis or biliary duct dilatation. Suggestive that he had a stone that was passed. Patient was stable for discharge. - Time Spent with Patient Total time spent providing and/or coordinating discharge services: - Discharge Medications Prescriptions: amLODIPine [Norvasc] 5 mg PO DAILY #30 tablet Levothyroxine [Synthroid] 150 mcg PO 0630 #1 tablet Home Medications: Calcium Carbonate [Calcium] 1,000 mg PO DAILY 06/13/18 [History] Gabapentin [Neurontin] 300 mg PO TID 06/13/18 [History] Levothyroxine Sodium 150 mg PO DAILY 06/13/18 [History] Pelham-3S/Dha/Epa/Fish Oil [Fish Oil Pelham-3 Softgel] 3 cap PO DAILY 06/13/18 [History] Simvastatin [Zocor] 20 mg PO DAILY 06/13/18 [History] Levothyroxine [Synthroid] 150 mcg PO 0630 #1 tablet 06/16/18 [Rx] amLODIPine [Norvasc] 5 mg PO DAILY #30 tablet 06/16/18 [Rx] Allergies/Adverse Reactions: Allergy/AdvReac Type Severity Reaction Status Date / Time No Known Allergies Allergy Verified 06/13/18 07:36 Date of admission: 06/13/18 18:42 Primary care physician: Shadi Gracia DO Consults: 06/14/18 11:20 Consult to Gastroenterology [CONS] Routine Consulting Provider: Radha Peters Reason for Consult: Pancreatitis Call Completed: Yes 06/15/18 09:05 Consult to Nurse Navigator [CONS] Routine Comment: Copd education Discharging clinician: Kaila Zuleta - Constitutional Vitals: Temp Pulse Resp BP Pulse Ox 97.7 F 79 16 174/70 93 06/16/18 06:48 06/16/18 06:48 06/16/18 07:25 06/16/18 06:48 06/16/18 11:58 Exam: . - Head Head exam: Present: atraumatic, normocephalic - Eye Eye exam: Present: PERRL, conjuntiva pink, sclera anicteric Pupils: Present: PERRL - Neck Neck exam general surgery: Present: supple, trachea midline. Absent: lymphadenopathy - Respiratory Respiratory exam: Present: CTAB. Absent: accessory muscle use, rales, rhonchi, wheezes - Cardiovascular Cardiovascular exam: Present: RRR, +S1, +S2. Absent: diastolic murmur, gallop, rubs, systolic murmur - GI/Abdominal GI/Abdominal exam: Present: normal bowel sounds, soft, no peritoneal signs. Absent: distended, tenderness - Extremities Exam Extremities exam: Present: warm, radial pulses palpable and symmetrical. Absent: calf tenderness, cyanotic, pedal edema - Neurological Exam Neurological exam: Present: CN II-XII intact, oriented X3, no focal deficits. Absent: pronater drift, facial droop, speech deficit - Skin Skin exam: Present: dry, intact - Patient Status Disposition: Home, Self-Care Condition: Good Functional capacity at discharge: independent ambulation Overall status at discharge: patient is back to baseline - Discharge Instructions Follow Up With: Shadi Gracia DO [Primary Care Provider] - - Diet and Activity Activity: increase activity as tolerated Diet: low fat, low cholesterol, low salt diet
== END 2018-06-16 13:40 | disposition home or self-care (01) | DRG 438 ==
LOC: EMEROOARM 07:33 → 3ANU 07:33 → SUATTDRO 18:42 → 3ANU 06-14 17:32
PROVIDERS: ADMIT Internal Medicine; ATTEND Student in an Organized Health Care Education/Training Program

== ENCOUNTER 2021-06-02 22:00 | Inpatient (IN) ==
[~2021-06-02 22:00] MED LIST: *HR* Dextrose 50 % in Water (Syg) 50 ML SYRINGE IVP ONE; *HR* EPINEPHrine 1 MG/10 ML SYRINGE IVP ONE; *HR* Etomidate 20 MG/10 ML AMPUL IVP ONE; *HR* Magnesium Sulfate 2 GM/50 ML PIGGYBACK IVPB ONE; *HR* Midazolam HCl 2 MG/2 ML VIAL IVP ONE; *HR* Midazolam HCl 5 MG/5 ML VIAL IVP ONE; Norepinephrine 4 MG/254 ML in 0.9% Sodium Chloride IVC ONE
[2021-06-02] MEDS ORDERED: *HR* Midazolam HCl 2 MG/2 ML VIAL ONE (22:03)
[2021-06-02] MEDS ORDERED: 0.9 % Sodium Chloride 1,000 ML ONE ×2 (22:03→22:10)
[2021-06-02] MEDS ORDERED: *HR* FentaNYL (PF) 100 MCG/2 ML VIAL ONE (22:03)
[2021-06-02] MEDS ORDERED: *HR* Bivalirudin 250 MG VIAL IVC ONE (22:03)
[2021-06-02] MEDS ORDERED: ISOVUE-370 200 ML INFUS..BTL ONE ×2 (22:04→22:59)
[2021-06-02] MEDS ORDERED: *HR* Heparin 10,000 UNIT/10 ML VIAL ONE (22:04)
[2021-06-02] MEDS ORDERED: Nitroglycerin 1,000 MCG/5 ML VIAL IV ONE (22:04)
[2021-06-02] MEDS ORDERED: Heparin 1,000 UNITS/500 mL 500 ML ONE (22:04)
[2021-06-02 22:10] VITALS: BP 128/91; PULSE 119; TEMP 99.8
[2021-06-02] MEDS ORDERED: *HR* Ticagrelor 90 MG TABLET ONE (22:10)
[2021-06-02] MEDS ORDERED: *HR* Heparin 5,000 UNIT/ML VIAL ONE (22:10)
[2021-06-02] MEDS ORDERED: *HR* Ticagrelor 90 MG TABLET PO ONE (22:15)
[2021-06-02] MEDS ORDERED: *HR* Heparin 5,000 UNIT/ML VIAL IVP ONE (22:15)
[2021-06-02 22:16] LABS: Basophils % 0.3 %; Eosinophils # 0.2 K/mcL (0.0-0.6); Eosinophils % 2.3 %; Hemoglobin 13.7 g/dL (12.9-16.9); Immature Granulocytes % 0.5 % (0-4); Lymphocytes # 2.5 K/mcL (0.6-4.6); Lymphocytes % 26.9 %; Mean Corpuscular HGB Conc 31.9 g/dL (31.6-35.5); Mean Corpuscular Hemoglobin 29.3 pg (28.0-33.3); Mean Corpuscular Volume 91.9 fL (83.0-100.0); Mean Platelet Volume 9.2 fL (9.4-12.4); Monocytes # 0.6 K/mcL (0.0-1.3); Monocytes % 6.8 %; Neutrophils # 5.8 K/mcL (1.6-8.9); Platelet Count 176 K/mcL (140-400); Red Blood Count 4.68 M/mcL (4.19-5.50); Red Cell Distribution Width 12.4 % (11.5-14.5); Segmented Neutrophils % 63.2 %; White Blood Count 9.1 K/mcL (4.3-11.1)
[2021-06-02 22:26] LABS: Activated Partial Thrombo Time 28.7 Seconds (26.0-36.0); Prothrombin Time 11.6 Seconds (9.4-12.1)
[2021-06-02] MEDS ORDERED: *HR* Phenylephrine 10 MG/ML VIAL ONE ×2 (22:31→22:36)
[2021-06-02 22:32] LABS: Alanine Aminotransferase 15 Units/L (7-52); Albumin 3.5 g/dL (3.5-5.7); Albumin/Globulin Ratio 1.5 (1.1-2.2); Alkaline Phosphatase 77 Units/L (34-104); Aspartate Amino Transferase 22 Units/L (13-39); BUN/Creatinine Ratio 17 (6-26); Bilirubin,Total 0.7 mg/dL (0.3-1.0); Blood Urea Nitrogen 21 mg/dL (8-23); Calcium 8.2 mg/dL (8.6-10.3); Carbon Dioxide 21 mEq/L (23-29); Chloride 108 mEq/L (98-107); Globulin 2.4 g/dL (2.4-3.5); Glucose 230 mg/dL (70-105); Magnesium 1.9 mg/dL (1.6-2.6); Osmolality,Calculated 300 (280-300); Potassium 3.9 mEq/L (3.5-5.1); Sodium 140 mEq/L (136-145); Total Protein 5.9 g/dL (6.4-8.9); eGFR For African Americans > 60 (> 60); eGFR For Non-African Americans 57 (> 60)
[2021-06-02] MEDS ORDERED: *HR* Atropine Sulfate 1 MG/10 ML SYRINGE ONE (22:33)
[2021-06-02] MEDS ORDERED: DOPamine Premix 0 MG/0 ML BAG ONE (22:33)
[2021-06-02] MEDS ORDERED: 0.9 % Sodium Chloride 250 ML ONE (22:36)
[2021-06-02 22:46] LABS: Troponin I 2.34 ng/mL (< 0.04)
[2021-06-02] MEDS ORDERED: Isovue-370 500 ML BOTTLE IVP ONE ×2 (23:08→23:37)
[2021-06-02 23:22] LABS: ABG Base Excess -8 mEq/L (-2 to 3); ABG HCO3 23 mEq/L (21-27); ABG Oxygen Saturation 99 % (95-98); ABG PCO2 71 mmHg (35-45); ABG PH 7.12 pH Units (7.32-7.45); ABG PO2 155 mmHg (85-104); ABG TCO2 25 mEq/L (20-26)
[2021-06-02] MEDS ORDERED: Perflutren Lipid Microsphere 1.3 ML in 0.9 % Sodium Chloride 8.7 ML IVP PRN (23:45)
[2021-06-03] MEDS ORDERED: 0.9 % Sodium Chloride 1,000 ML ONE ×2 (00:19→00:20)
[2021-06-03 00:27] LABS: ABG Base Excess -8 mEq/L (-2 to 3); ABG HCO3 22 mEq/L (21-27); ABG Oxygen Saturation 100 % (95-98); ABG PCO2 69 mmHg (35-45); ABG PH 7.12 pH Units (7.32-7.45); ABG PO2 284 mmHg (85-104); ABG TCO2 24 mEq/L (20-26)
[2021-06-03 00:28] LABS: Basophils # 0.1 K/mcL (0.0-0.2); Basophils % 0.4 %; Eosinophils # 0.1 K/mcL (0.0-0.6); Eosinophils % 0.8 %; Hematocrit 39.5 % (37.5-50.1); Hemoglobin 12.3 g/dL (12.9-16.9); Immature Granulocytes % 2.4 % (0-4); Lymphocytes # 2.5 K/mcL (0.6-4.6); Lymphocytes % 14.7 %; Mean Corpuscular HGB Conc 31.1 g/dL (31.6-35.5); Mean Corpuscular Hemoglobin 29.4 pg (28.0-33.3); Mean Corpuscular Volume 94.3 fL (83.0-100.0); Mean Platelet Volume 9.3 fL (9.4-12.4); Monocytes # 0.8 K/mcL (0.0-1.3); Monocytes % 4.7 %; Neutrophils # 13.2 K/mcL (1.6-8.9); Platelet Count 167 K/mcL (140-400); Red Blood Count 4.19 M/mcL (4.19-5.50); Red Cell Distribution Width 12.5 % (11.5-14.5); White Blood Count 17.2 K/mcL (4.3-11.1)
[2021-06-03 00:49] LABS: Calcium 9.1 mg/dL (8.6-10.3)
[2021-06-03] MEDS ORDERED: Artificial Tears SOLN 15 ML BOTTLE BOTH EYES PRN (00:52)
[2021-06-03] MEDS ORDERED: *HR* Midazolam HCl 2 MG/2 ML VIAL IV ONE (00:52)
[2021-06-03 00:56] LABS: Troponin I 2.63 ng/mL (< 0.04)
[2021-06-03] MEDS ORDERED: Phenylephrine 10 MG in 0.9 % Sodium Chloride 250 ML IVC SCH (01:00)
[2021-06-03] MEDS ORDERED: Sodium Bicarbonate 150 MEQ in D5% in Water 1,000 ML IVC SCH (01:00)
[2021-06-03] MEDS ORDERED: Norepinephrine 4 MG/254 ML IV.SOLN IVC SCH (01:00)
[2021-06-03] MEDS ORDERED: 0.9 % Sodium Chloride 250 ML IVC SCH (01:00)
[2021-06-03] MEDS ORDERED: Pantoprazole 40 MG in 0.9 % Sodium Chloride Mini Bag 100 ML IVC SCH (01:00)
[2021-06-03] MEDS ORDERED: Midazolam HCl 50 MG/100 ML IV.SOLN IVC SCH (01:00)
[2021-06-03] MEDS ORDERED: FentaNYL (PF) 1,000 MCG/100 ML IV.SOLN IVC SCH (01:00)
[2021-06-03] MEDS ORDERED: Perflutren Lipid Microsphere 1.3 ML in 0.9 % Sodium Chloride 8.7 ML IVP PRN (01:10)
[2021-06-03 02:02] LABS: Albumin 2.7 g/dL (3.5-5.7); Albumin/Globulin Ratio 1.4 (1.1-2.2); Bilirubin,Direct 0.1 mg/dL (0.0-0.2); Bilirubin,Indirect 0.5 mg/dL (0.0-1.0); Bilirubin,Total 0.6 mg/dL (0.3-1.0); Magnesium 5.2 mg/dL (1.6-2.6); Total Protein 4.7 g/dL (6.4-8.9)
[2021-06-03 02:05] LABS: INR 2.8; Prothrombin Time 31.5 Seconds (9.4-12.1)
[2021-06-03 02:16] LABS: Thyroid Stimulating Hormone 2.23 mcIU/mL (0.340-5.600)
[2021-06-03] MEDS ORDERED: Artificial Tears SOLN 15 ML BOTTLE BOTH EYES SCH (04:00)
[2021-06-03 04:06] VITALS: O2SAT 100
[2021-06-03] MEDS ORDERED: Chlorhexidine Rinse 15 ML MOUTHWASH MM SCH (09:00)
== END 2021-06-03 02:07 | disposition expired | DRG 250 ==
LOC: EMEROOARM 22:00 → ICNU 22:25
PROVIDERS: ADMIT Internal Medicine Interventional Cardiology; ATTEND Internal Medicine Interventional Cardiology